=== PATIENT | female | born 1955 | race Caucasian/White ===

== ENCOUNTER 2022-12-21 12:51 | Emergency (ER) | payer OTHER ==
[2022-12-21] MEDS ORDERED: Sodium Chloride 0.9% 10 ML Syringe FLUSH PRN (12:55)
[2022-12-21 13:05] LABS: APPEARANCE,URINE CLEAR; BILIRUBIN,URINE NEGATIVE (NEGATIVE); COLOR,URINE YELLOW; GLUCOSE,URINE NEGATIVE (NEGATIVE); KETONES,URINE NEGATIVE (NEGATIVE); LEUKOCYTE ESTERASE,URINE NEGATIVE (NEGATIVE); NITRITE,URINE NEGATIVE (NEGATIVE); OCCULT BLOOD,URINE NEGATIVE (NEGATIVE); PH,URINE 5.5 (5.0-9.0); PROTEIN,URINE NEGATIVE (NEGATIVE); UROBILINOGEN,URINE 0.2 E.U./dL (0.2-1.0)
[2022-12-21 13:22] LABS: BASOPHILS ABSOLUTE AUTO 0.04 K/uL (0.00-0.20); BASOPHILS PERCENT AUTO 0.4 % (0.0-2.0); EOSINOPHILS ABSOLUTE AUTO 0.13 K/uL (0.00-0.50); EOSINOPHILS PERCENT AUTO 1.2 % (0.0-5.0); HEMATOCRIT 47.4 % (34.0-46.0); HEMOGLOBIN 15.6 g/dL (11.7-15.5); LYMPHOCYTES ABSOLUTE AUTO 2.44 K/uL (0.50-3.50); LYMPHOCYTES PERCENT AUTO 22.8 % (10.0-50.0); MEAN CORPUSCULAR HEMOGLOBIN 28.2 pg (28.2-33.3); MEAN CORPUSCULAR HGB CONC 32.9 g/dL (31.7-36.0); MEAN CORPUSCULAR VOLUME 85.7 fL (84.0-98.0); MONOCYTES ABSOLUTE AUTO 0.75 K/uL (0.00-1.00); NEUTROPHILS ABSOLUTE AUTO 7.36 K/uL (1.40-7.00); NEUTROPHILS PERCENT AUTO 68.6 % (45.0-80.0); PLATELET COUNT,PLT 361 K/uL (150-350); RED BLOOD CELL COUNT 5.53 M/uL (3.77-5.09); RED CELL DISTRIBUTION WIDTH 14.2 % (11.2-14.1); WHITE BLOOD CELL COUNT,WBC 10.7 K/uL (4.0-10.2)
[2022-12-21 13:50] LABS: ALBUMIN 3.9 g/dL (3.4-5.0); ANION GAP 8.6 meq/L (7-15); BILIRUBIN TOTAL 0.3 mg/dL (0.2-1.0); CALCIUM 9.2 mg/dL (8.5-10.1); CARBON DIOXIDE,CO2 27.4 mmol/L (21.0-32.0); CREATININE 0.7 mg/dL (0.51-1.17); EST CRCL DRUG DOSING (CG) 77.59 mL/min; POTASSIUM,K 4.2 mmol/L (3.5-5.1)
[2022-12-21 17:14] VITALS: PULSE 88
[2022-12-21 17:15] VITALS: BP 134/94
== END 2022-12-21 16:20 | disposition home or self-care (01) ==
LOC: MERGE 12:51 → LL.ED 12:51
DX: G45.4 Transient global amnesia (principal); J44.9 Chronic obstructive pulmonary disease, unspecified; F17.210 Nicotine dependence, cigarettes, uncomplicated; Z79.899 Other long term (current) drug therapy
CPT/HCPCS: 70450; 70551; 71045; 80053; 81003; 83605; 83735; 83880; 84484; 85025; 85610; 93005; 93010; 99284; 99285